=== PATIENT | male | born 1960 | race Caucasian/White ===

== ENCOUNTER → 2016-10-18 | Outpatient (REF) | payer BC, OTHER ==
[~2016-10-18] MED LIST: COLA100C PO; MYLASUS2 PO; MYLI40DR PO; OXYC-517 PO; ROSU10TA PO; SERT-141 PO; TEGR200T PO; TYLE500T78 PO; VITMTA PO; ZANT300T PO
[2016-10-18 18:34] LABS: BASO # 0.2 K/mm3 (0.0-0.2); BASO % 2.7 % (0.0-1.0); CARBAMAZEPINE (TEGRETOL) LEVEL 5.5 UG/ML (4.0-10.0); EOS # 0.2 K/mm3 (0.0-0.50); EOS % 1.8 % (0.0-3.0); LARGE UNSTAINED CELL # 0.2 K/mm3 (0.0-0.4); LARGE UNSTAINED CELL % 1.9 % (0.0-4.0); LYMPH # 1.1 K/mm3 (1.5-4.5); LYMPH % 11.9 % (24.0-44.0); MEAN CORPUSCULAR HGB CONC 33.5 g/dl (32.0-36.5); MEAN CORPUSCULAR VOLUME 86.6 fl (80.0-96.0); MONO # 0.4 K/mm3 (0.0-0.8); MONO % 4.5 % (0.0-5.0); NEUTROPHILS # 6.4 K/mm3 (1.8-7.7); NEUTROPHILS % 77.2 % (36.0-66.0); PLATELET COUNT, AUTOMATED 214 k/mm3 (150-450); RED CELL DISTRIBUTION WIDTH 13.2 % (11.5-14.5); WHITE BLOOD COUNT 8.3 K/mm3 (4.0-10.0)
== END ==
LOC: M LABNEURO 17:05
PROVIDERS: ATTEND Physician Assistant Medical
DX: G40.89 Other seizures (principal)

== ENCOUNTER → 2016-12-21 | Outpatient (REF) | payer OTHER, BC ==
[~2016-12-21] MED LIST changes: -SERT-141 PO; +SERT50TA PO
== END ==
LOC: M LAB REF 16:09
PROVIDERS: ATTEND Family Medicine
DX: R19.7 Diarrhea, unspecified (principal)

== ENCOUNTER 2016-12-30 13:00 | Emergency (ER) | payer BC, OTHER ==
[~2016-12-30] VITALS: Ht 190.5 cm; Wt 110.2 kg
[~2016-12-30 13:00] MED LIST changes: -COLA100C PO; +COLA100C3 PO; +CRES10TA32 PO; +MYLASUS16 PO; -MYLASUS2 PO; -ROSU10TA PO
[2016-12-30] MEDS ORDERED: LORA10TA2 PO (13:18)
[2016-12-30] MEDS ORDERED: GI COCKTAIL 50ML BTL(HYOSCYAMINE/MAALOX/LIDOCAINE VISCOUS)(1:3:1) As Ordered ONE (13:31)
[2016-12-30] MEDS ORDERED: ASPIRIN 81 MG CHEW TABLET PO ONE (13:45)
[2016-12-30] MEDS ORDERED: GI COCKTAIL 50ML BTL(HYOSCYAMINE/MAALOX/LIDOCAINE VISCOUS)(1:3:1) PO ONE (13:45)
[2016-12-30] MEDS ORDERED: NS 1,000 ML IV ONE (13:45)
[2016-12-30 14:08] LABS: BASO % 0.6 % (0.0-1.0); EOS # 0.1 K/mm3 (0.0-0.50); EOS % 1.7 % (0.0-3.0); LARGE UNSTAINED CELL # 0.1 K/mm3 (0.0-0.4); LARGE UNSTAINED CELL % 2.5 % (0.0-4.0); LYMPH # 0.9 K/mm3 (1.5-4.5); LYMPH % 17.2 % (24.0-44.0); MEAN CORPUSCULAR HEMOGLOBIN 30.1 pg (27.0-33.0); MEAN CORPUSCULAR HGB CONC 34.5 g/dl (32.0-36.5); MEAN CORPUSCULAR VOLUME 87.2 fl (80.0-96.0); MONO # 0.4 K/mm3 (0.0-0.8); MONO % 6.4 % (0.0-5.0); NEUTROPHILS # 3.9 K/mm3 (1.8-7.7); NEUTROPHILS % 71.6 % (36.0-66.0); PLATELET COUNT, AUTOMATED 192 k/mm3 (150-450); RED CELL DISTRIBUTION WIDTH 12.8 % (11.5-14.5); WHITE BLOOD COUNT 5.5 K/mm3 (4.0-10.0)
[2016-12-30 14:14] LABS: INR 0.98
[2016-12-30 14:35] LABS: ALBUMIN 4.2 GM/DL (3.2-5.2); ALBUMIN/GLOBULIN RATIO 1.27 (1.00-1.93); ALKALINE PHOSPHATASE 90 U/L (45-117); ALT/SGPT 26 U/L (12-78); ANION GAP 6 MEQ/L (8-16); AST/SGOT 18 U/L (15-37); BILIRUBIN,DIRECT 0.1 MG/DL (0.0-0.2); BILIRUBIN,TOTAL 0.4 MG/DL (0.2-1.0); BLOOD UREA NITROGEN 14 MG/DL (7-18); CALCIUM LEVEL 9.2 MG/DL (8.5-10.1); CARBON DIOXIDE LEVEL 26 MEQ/L (21-32); CHLORIDE LEVEL 108 MEQ/L (98-107); CREATININE FOR GFR 0.93 MG/DL (0.70-1.30); GLOMERULAR FILTRATION RATE > 60.0 (>56); GLUCOSE, FASTING 102 MG/DL (70-105); POTASSIUM SERUM 3.7 MEQ/L (3.5-5.1); SODIUM LEVEL 140 MEQ/L (136-145); TOTAL PROTEIN 7.5 GM/DL (6.4-8.2)
--- NOTE | 2016-12-30 15:21 | REP ---
PORTABLE CHEST: Two portable views of the chest are performed. There is no evidence of acute infiltrate or pulmonary edema. The heart is normal in size and the mediastinal silhouette is unchanged. There are degenerative changes of the spine. IMPRESSION: No acute pulmonary disease. Signed by Clarence Baker MD 12/30/2016 04:54 P
[2016-12-30] MEDS ORDERED: predniSONE 20 MG TAB PO ONE (15:30)
[2016-12-30] MEDS ORDERED: ALBUTEROL SULFATE 2.5 MG/0.5 ML INH NEB SOLN NEB ONE (15:30)
[2016-12-30] MEDS ORDERED: PANTOPRAZOLE 40MG INJ (PROTONIX) (C9113) IV ONE (15:30)
[2016-12-30] MEDS ORDERED: PRED20TA PO (16:46)
[2016-12-30] MEDS ORDERED: ALBU17IN2 INH (16:46)
[2016-12-30] MEDS ORDERED: OMEP40CA2 PO (16:46)
[2016-12-30 17:09] VITALS: BP 122/57
--- NOTE | 2016-12-30 19:11 | ECGEPIP ---
Stationary ECG Study [facility] - ED Test Date: 2016-12-30 Pat Name: KRISTEN JUNG Department: Room: - Gender: M Project Manager Finance: reginald : 1960 Requested By: Tracy Beard Order Number: [id number] Reading MD: Ravinder Sheehan Measurements Intervals [place] Rate: 66 P: 8 UT: 155 QRS: 59 QRSD: 110 T: 44 QT: 389 QTc: 408 Interpretive Statements SINUS RHYTHM Electronically Signed On 12-30-2016 19:10:50 EDT by Ravinder Sheehan
== END 2016-12-30 17:24 | disposition home or self-care (01) ==
LOC: M ED 14:18
DX: R07.89 Other chest pain (principal); K21.9 Gastro-esophageal reflux disease without esophagitis; J20.9 Acute bronchitis, unspecified; R56.9 Unspecified convulsions; E78.5 Hyperlipidemia, unspecified; F41.9 Anxiety disorder, unspecified; Z87.820 Personal history of traumatic brain injury; Z91.040 Latex allergy status; Z79.899 Other long term (current) drug therapy
CPT/HCPCS: 71010; 80048; 80076; 82550; 82553; 83880; 84443; 85025; 85379; 85610; 85730; 86140; 87040; 87486; 87581; 87633; 87798; 93005; 93041; 94640; 94760; 96374; 99285; C9113

== ENCOUNTER → 2019-07-18 | Outpatient (REF) | payer MEDICARE, OTHER ==
[~2019-07-18] MED LIST changes: +ALBU17IN2 INH; -COLA100C3 PO; +COLA100C5 PO; +CRES10TA PO; -CRES10TA32 PO; +LORA-243 PO; +OMEP40CA97 PO; +PRED20TA PO; +SERT-141 PO; -SERT50TA PO; -ZANT300T PO; +ZANT300T9 PO
== END ==
LOC: M LAB REF 12:12
PROVIDERS: ATTEND Family Medicine
DX: R30.0 Dysuria (principal)

== ENCOUNTER → 2021-08-19 | Outpatient (REF) | payer MEDICARE, OTHER ==
[~2021-08-19] MED LIST changes: +OMEP40CA4 PO; -OMEP40CA97 PO
[2021-08-19 14:14] LABS: STABLE ALKPHOS 27 U/L
[2021-08-19 14:16] LABS: % LABILE ALKALINE PHOSPHATASE 80 %; LABILE ALKPHOS 109 U/L
== END ==
LOC: M LAB REF 12:30
PROVIDERS: ATTEND Family Medicine
DX: R74.8 Abnormal levels of other serum enzymes (principal)

== ENCOUNTER → 2022-05-23 | Outpatient (CLI) | payer MEDICARE, BC, OTHER | LOC: M LABSMTC 11:40 | PROVIDERS: ATTEND Anesthesiology | DX: Z01.812 Encounter for preprocedural laboratory examination (principal) ==

== ENCOUNTER 2022-05-27 08:34 | Day surgery (SDC) | payer MEDICARE, BC, OTHER ==
[~2022-05-27] VITALS: Ht 190.5 cm; Wt 140.6 kg
[~2022-05-27 08:34] MED LIST changes: +NS 1,000 ML IV ONE
[2022-05-27] MEDS ORDERED: propofoL 500 MG/50 ML VIAL As Ordered ONE (09:48)
[2022-05-27 10:40] VITALS: BP 148/64
== END 2022-05-27 10:49 | disposition home or self-care (01) ==
LOC: M OPP 08:34
PROVIDERS: ATTEND Surgery
DX: Z12.11 Encounter for screening for malignant neoplasm of colon (principal); Z86.010 Personal history of colon polyps; N40.0 Benign prostatic hyperplasia without lower urinary tract symptoms; R56.9 Unspecified convulsions; Z91.040 Latex allergy status

== ENCOUNTER 2024-04-19 12:55 | Emergency (ER) | payer MEDICARE, BC, OTHER ==
[~2024-04-19] VITALS: Ht 190.5 cm; Wt 135.7 kg
[~2024-04-19 12:55] MED LIST changes: -NS 1,000 ML IV ONE
[2024-04-19] MEDS ORDERED: NITROGLYCERIN 0.3MG SUBL TAB SL PRN (13:25)
[2024-04-19] MEDS: NS 1,000 ML IV ONE (13:42)
[2024-04-19] MEDS: fentaNYL 100 MCG/2 ML INJECTION IV PRN (13:43)
[2024-04-19 13:46] LABS: BASO # 0.1 10^3/uL (0.0-0.2); BASO % 0.4 % (0.0-1.0); EOS # 0.2 10^3/uL (0.0-0.5); EOS % 1.3 % (0.0-3.0); HEMATOCRIT 47.3 % (42.0-52.0); HEMOGLOBIN 15.7 g/dl (13.5-17.5); LYMPH # 1.2 10^3/uL (1.5-5.0); LYMPH % 7.5 % (24.0-44.0); MEAN CORPUSCULAR HGB CONC 33.2 g/dl (32.0-36.5); MEAN CORPUSCULAR VOLUME 87.4 fl (80.0-96.0); MONO # 0.8 10^3/uL (0.0-0.8); MONO % 4.7 % (2.0-8.0); NEUTROPHILS # 13.7 10^3/uL (1.5-8.5); NEUTROPHILS % 85.7 % (36.0-66.0); PLATELET COUNT, AUTOMATED 235 10^3/uL (150-450); RED BLOOD COUNT 5.41 10^6/uL (4.30-6.10)
[2024-04-19] MEDS: ASPIRIN 81MG CHEW TABLET PO ONE (13:47)
[2024-04-19] MEDS: NITROGLYCERIN 0.3MG SUBL TAB SL PRN (13:53)
[2024-04-19 13:57] LABS: INR 1.02; PARTIAL THROMBOPLASTIN TIME 33.4 SECONDS (24.8-34.2); PROTHROMBIN TIME 13.1 SECONDS (12.5-14.5)
[2024-04-19 14:03] VITALS: BP 127/59
[2024-04-19 14:09] LABS: LIPASE 34 U/L (12-53)
[2024-04-19 14:10] LABS: CK-MB VALUE MASS < 1.0 NG/ML (<3.6)
[2024-04-19 14:12] LABS: ALBUMIN 4.6 G/DL (3.2-5.2); ALKALINE PHOSPHATASE 150 U/L (46-116); ALT/SGPT 42 U/L (7.0-40); AST/SGOT 19 U/L (<34); BILIRUBIN,DIRECT 0.1 MG/DL (<0.4); BILIRUBIN,TOTAL 0.3 MG/DL (0.3-1.2); BLOOD UREA NITROGEN 18 MG/DL (9-23); CALCIUM LEVEL 9.7 MG/DL (8.3-10.6); CARBON DIOXIDE LEVEL 27 MMOL/L (20-31); CHLORIDE LEVEL 108 MMOL/L (98-107); CPK CREATINE PHOSPHOKINASE 126 U/L (46-171); CREATININE FOR GFR 0.93 MG/DL (0.70-1.30); GLOMERULAR FILTRATION RATE > 60.0 (>49); GLUCOSE, FASTING 121 MG/DL (74-106); MB/CK RELATIVE INDEX 0.79 (< OR =4); POTASSIUM SERUM 3.8 MMOL/L (3.5-5.1); SODIUM LEVEL 142 MMOL/L (136-145); TOTAL PROTEIN 7.5 G/DL (5.7-8.2)
[2024-04-19 14:13] LABS: FREE T4 1.21 NG/DL (0.89-1.76); THYROID STIMULATING HORMONE 2.286 uIU/ML (0.55-4.78)
[2024-04-19] MEDS ORDERED: ISOVUE-370 76% 100ML VIAL As Ordered ONE (14:46)
[2024-04-19 15:14] LABS: CK-MB VALUE MASS 1.1 NG/ML (<3.6)
[2024-04-19 15:16] LABS: MB/CK RELATIVE INDEX 0.9 (< OR =4)
[2024-04-19 16:17] VITALS: BP 127/60; TEMP 97.7; O2SAT 98
[2024-04-19 17:05] LABS: CK-MB VALUE MASS < 1.0 NG/ML (<3.6)
[2024-04-19 17:09] LABS: CPK CREATINE PHOSPHOKINASE 96 U/L (46-171); MB/CK RELATIVE INDEX 1.04 (< OR =4)
[2024-04-19] MEDS ORDERED: CARA1TAB6 PO (17:29)
== END 2024-04-19 18:00 | disposition home or self-care (01) ==
LOC: M ED 12:55
DX: R07.9 Chest pain, unspecified (principal); E11.9 Type 2 diabetes mellitus without complications; I10 Essential (primary) hypertension; E78.5 Hyperlipidemia, unspecified; Z87.891 Personal history of nicotine dependence; Z91.040 Latex allergy status; Z79.51 Long term (current) use of inhaled steroids; Z79.52 Long term (current) use of systemic steroids; Z79.899 Other long term (current) drug therapy
CPT/HCPCS: 71045; 71275; 74177; 80047; 80048; 80076; 82550; 82553; 83690; 84439; 84443; 84484; 85025; 85610; 85730; 93005; 93041; 94760; 96365; 96366; 99291; J3010; Q9967